=== PATIENT | female | born 1955 | race Native Hawaiian/Other Pacific Islander ===

== ENCOUNTER 2016-07-07 17:02 | Outpatient (CLI) | payer OTHER ==
[~2016-07-07 17:02] MED LIST: ALBU90AE13 INH; ASPIR-LOW81 MG PO; ATEN50TA36 PO; BUPROPN HCL300 MG PO; BUSPIRONE30 MG PO; CETI10TA PO; CLON1TAB18 PO; CYCL10TA35 PO; DULO60CA2 PO; EDLUAR10 MG PO; EQL OMEPRAZOLE20 MG PO; FENT75DI TD; IBUPROFEN200 M1 PO; JANUMET1 TAB PO; JANUVIA25 MG PO; LISI20TA24 PO; LISI20TA31 PO; METF500T PO; MOBIC15 MG PO; PERCOCET1 TA3 PO; ROPINIROLE0.25 MG PO; SIMV40TA57 PO; TRAM50TA PO; [UNRECOGNIZED DRUG - OTHER] PO
== END 2016-07-07 19:18 | disposition home or self-care (01) ==
LOC: RAD 17:02
DX: J12.89 Other viral pneumonia (principal)

== ENCOUNTER 2017-07-13 14:41 | Outpatient (CLI) | payer OTHER | END 2017-07-13 22:32 | disposition home or self-care (01) | LOC: MRI 14:41 | DX: M54.12 Radiculopathy, cervical region (principal) ==

== ENCOUNTER 2017-09-02 13:24 | Outpatient (CLI) | payer OTHER | END 2017-09-02 20:12 | disposition home or self-care (01) | LOC: RAD 13:24 | DX: M81.0 Age-related osteoporosis without current pathological fracture (principal) ==

== ENCOUNTER 2017-12-06 17:32 | Outpatient (CLI) | payer OTHER | END 2017-12-06 19:55 | disposition home or self-care (01) | LOC: CT 17:32 | DX: R20.0 Anesthesia of skin (principal) ==

== ENCOUNTER 2018-01-18 15:22 | Outpatient (CLI) | payer OTHER | END 2018-01-18 21:17 | disposition home or self-care (01) | LOC: RAD 15:22 | DX: R14.0 Abdominal distension (gaseous) (principal) ==

== ENCOUNTER 2018-04-20 19:40 | Inpatient (IN) | payer OTHER ==
[~2018-04-20] VITALS: Ht 165.1 cm; Wt 99.9 kg
[2018-04-20 20:18] VITALS: BP 138/61; TEMP 99.4
[2018-04-20 21:57] LABS: PLATELET COUNT 280 K/uL (152-353)
[2018-04-20 22:03] LABS: POTASSIUM 4.4 mmol/L (3.6-5.2)
[2018-04-21] VITALS (7 sets, daily range): BP systolic 110–120; BP diastolic 40–55; TEMP 97.8–98.4; Ht 165.1 cm; Wt 99.9 kg
[2018-04-21 16:36] LABS: PLATELET COUNT 276 K/uL (152-353)
[2018-04-21 16:41] LABS: POTASSIUM 4.2 mmol/L (3.6-5.2)
[2018-04-21] MEDS ORDERED: TIZANIDINE HYDRO4 MG PO (17:45)
[2018-04-21] MEDS ORDERED: ROPINIROLE1 MG PO (17:45)
[2018-04-21] MEDS ORDERED: DULOXETINE HYDR40 MG PO (17:46)
[2018-04-21] MEDS ORDERED: PERCOCET1 TA3 PO (17:47)
[2018-04-21] MEDS ORDERED: BUSPIRONE30 MG PO (17:47)
[2018-04-22] VITALS: BP 132/61; TEMP 98.3
[2018-04-22 04:00] VITALS: BP 97/48; TEMP 97.5
[2018-04-22 06:11] LABS: PLATELET COUNT 279 K/uL (152-353)
[2018-04-22 06:23] LABS: POTASSIUM 4.3 mmol/L (3.6-5.2)
[2018-04-22 08:12] VITALS: BP 107/50; TEMP 97.9
[2018-04-22 12:05] VITALS: BP 122/57; TEMP 98.4
[2018-04-22 16:00] VITALS: BP 130/61; TEMP 98.3
[2018-04-22 20:23] VITALS: BP 120/63; TEMP 98.3
[2018-04-23] VITALS: BP 115/51; TEMP 98.3
[2018-04-23 04:00] VITALS: BP 125/56; TEMP 98.3
[2018-04-23 06:01] LABS: PLATELET COUNT 258 K/uL (152-353)
[2018-04-23 06:11] LABS: POTASSIUM 4.4 mmol/L (3.6-5.2)
[2018-04-23 08:00] VITALS: BP 127/61; TEMP 98
[2018-04-23 12:00] VITALS: BP 125/71; TEMP 98
[2018-04-23 16:00] VITALS: BP 134/68; TEMP 97.9
[2018-04-23 20:00] VITALS: BP 136/63; TEMP 98.2
[2018-04-24] VITALS: BP 130/62; TEMP 98.2
[2018-04-24 04:25] VITALS: BP 108/60; TEMP 98
[2018-04-24 05:23] LABS: PLATELET COUNT 282 K/uL (152-353)
[2018-04-24 06:56] LABS: POTASSIUM 4.3 mmol/L (3.6-5.2)
[2018-04-24 08:00] VITALS: BP 123/57; TEMP 98.2
[2018-04-24 12:00] VITALS: BP 147/61; TEMP 98.1
[2018-04-24 16:00] VITALS: BP 154/67; TEMP 98.9
[2018-04-24 20:00] VITALS: BP 120/53; TEMP 98.6
[2018-04-25] VITALS: BP 158/80; TEMP 98.3
[2018-04-25 04:00] VITALS: BP 106/65; TEMP 98.3
[2018-04-25 06:38] LABS: POTASSIUM 4.4 mmol/L (3.6-5.2)
[2018-04-25 07:54] LABS: PLATELET COUNT 272 K/uL (152-353)
[2018-04-25 12:00] VITALS: BP 171/79; TEMP 98.1
[2018-04-25 16:00] VITALS: BP 168/72; TEMP 98.1
[2018-04-25 20:00] VITALS: BP 155/69; TEMP 98.1
[2018-04-26] VITALS: BP 156/67; TEMP 98
[2018-04-26 04:00] VITALS: BP 118/70; TEMP 97.9
[2018-04-26 05:44] LABS: PLATELET COUNT 286 K/uL (152-353)
[2018-04-26 06:03] LABS: POTASSIUM 4.1 mmol/L (3.6-5.2)
[2018-04-26 07:30] VITALS: BP 117/69; TEMP 98.3
[2018-04-26 12:00] VITALS: BP 148/54; TEMP 98.4
== END 2018-04-26 15:55 | disposition home or self-care (01) | DRG 190 ==
LOC: ED 19:40 → MED/SURG 23:00
PROVIDERS: Internal Medicine; ADMIT Family Medicine
DX: J44.0 Chronic obstructive pulmonary disease with (acute) lower respiratory infection (principal); J18.8 Other pneumonia, unspecified organism; J44.1 Chronic obstructive pulmonary disease with (acute) exacerbation; E11.69 Type 2 diabetes mellitus with other specified complication; R06.09 Other forms of dyspnea; E86.0 Dehydration; R09.02 Hypoxemia; J02.8 Acute pharyngitis due to other specified organisms; K21.9 Gastro-esophageal reflux disease without esophagitis; I10 Essential (primary) hypertension; F41.9 Anxiety disorder, unspecified
CPT/HCPCS: 36415; 80053; 83735; 83880; 84100; 85027; 87502; 94640; 94664; 94760; J0456; J0696; J1815; J1940; J2270; J2405; J2930

== ENCOUNTER 2018-10-25 15:17 | Outpatient (CLI) | payer OTHER ==
[~2018-10-25 15:17] MED LIST changes: +DULOXETINE HYDR40 MG PO; +ROPINIROLE1 MG PO; +TIZANIDINE HYDRO4 MG PO
== END 2018-10-25 23:19 | disposition home or self-care (01) ==
LOC: RESP 15:17
DX: M54.17 Radiculopathy, lumbosacral region (principal); Z13.820 Encounter for screening for osteoporosis; N95.8 Other specified menopausal and perimenopausal disorders

== ENCOUNTER 2018-12-01 09:57 | Outpatient (CLI) | payer OTHER | END 2018-12-01 21:50 | disposition home or self-care (01) | LOC: NM 09:57 | DX: M54.17 Radiculopathy, lumbosacral region (principal) | CPT/HCPCS: A9561 ==

== ENCOUNTER 2019-02-07 08:33 | Day surgery (SDC) | payer OTHER ==
[~2019-02-07] VITALS: Ht 165.1 cm; Wt 85.3 kg
[2019-02-07 09:15] LABS: PLATELET COUNT 220 K/uL (152-353)
[2019-02-07 09:34] LABS: POTASSIUM 4.9 mmol/L (3.6-5.2)
== END 2019-02-07 11:00 | disposition home or self-care (01) ==
LOC: OR 08:33
PROVIDERS: Pain Medicine Interventional Pain Medicine
PROC: 3E0R33Z Introduction of Anti-inflammatory into Spinal Canal, Percutaneous Approach (ICD-10-PCS; principal; 2019-02-07)
PROC: B01BYZZ Fluoroscopy of Spinal Cord using Other Contrast (ICD-10-PCS; 2019-02-07)
DX: M50.123 Cervical disc disorder at C6-C7 level with radiculopathy (principal); J44.9 Chronic obstructive pulmonary disease, unspecified
CPT/HCPCS: 80053; 85027; 93005; 94640; 94664; 94760; J1020; J2001; J2250; J2405; J2704

== ENCOUNTER 2019-04-04 08:25 | Day surgery (SDC) | payer OTHER ==
[2019-04-04 09:10] LABS: PLATELET COUNT 225 K/uL (152-353)
[2019-04-04 09:37] LABS: POTASSIUM 4.7 mmol/L (3.6-5.2)
== END 2019-04-04 11:37 | disposition home or self-care (01) ==
LOC: OR 08:25
PROVIDERS: Pain Medicine Interventional Pain Medicine
PROC: 3E0R33Z Introduction of Anti-inflammatory into Spinal Canal, Percutaneous Approach (ICD-10-PCS; principal; 2019-04-04)
PROC: B01BYZZ Fluoroscopy of Spinal Cord using Other Contrast (ICD-10-PCS; 2019-04-04)
DX: M50.123 Cervical disc disorder at C6-C7 level with radiculopathy (principal)
CPT/HCPCS: 80053; 85027; J1020; J2001; J2405; J2704

== ENCOUNTER 2019-11-29 12:49 | Emergency (ER) | payer OTHER ==
[~2019-11-29] VITALS: Ht 165.1 cm; Wt 88.0 kg
[~2019-11-29 12:49] MED LIST changes: +CYAN10009 IM; +DULO30CA PO; +IBU400 MG PO; +MAGN400T4 PO; +OXYC10TAB PO; +PANTOPRAZOLE 40MG TA PO; +POT CHLORIDE10 MEQ PO; +TIZA4TAB5 PO; +TRAZ50TA36 PO
[2019-11-29 13:54] LABS: PLATELET COUNT 173 K/uL (152-353)
[2019-11-29 14:05] LABS: POTASSIUM 4.4 mmol/L (3.6-5.2); SODIUM 139 mmol/L (136-145)
[2019-11-29 18:48] VITALS: BP 147/62; TEMP 98.8
== END 2019-11-29 18:48 | disposition home or self-care (01) ==
LOC: ED 12:49
PROVIDERS: Emergency Medicine
DX: I49.8 Other specified cardiac arrhythmias (principal); R06.02 Shortness of breath
CPT/HCPCS: 80053; 82550; 82553; 83880; 84484; 85027; 85379; 93005; 99283; Q9963